=== PATIENT | male | born 1990 | race Two or more races ===

== ENCOUNTER 2020-03-02 14:10 | Emergency (ER) | payer SELFPAY ==
[~2020-03-02] VITALS: Ht 182.9 cm; Wt 105.2 kg
[2020-03-02] MEDS ORDERED: DiphenhydrAMINE 50mg/ml Inj IM ONE ×2 (14:30→14:45)
[2020-03-02 14:32] VITALS: BP 118/74
--- NOTE | 2020-03-02 14:36 | Emergency Room Report ---
History of Present Illness General Chief Complaint: Allergic Reaction Source: Patient Present Illness HPI 29 YO male presents to the ED c/o 02/15 in severity burning and itchy rash to the bilateral forearms x 45 mins. Pt. reports acute onset after cutting down an agave plant. Pt. reports he Took 25mg Benadryl PO [employer]CR[employer]. Pt. denies fevers, chills or swollen tender lymph nodes. Denies lesions/rashes elsewhere on the body. Denies new medications or body washes or creams. Denies swelling of the lips, tongue , throat or airway. Denies wheezing, or shortness of breath. Denies recent travel, recent illness or ill contacts. denies blisters, oral lesions, or sloughing of the skin. Allergies: Coded Allergies: No Known Allergies (Unverified , 03/02/20) COVID-19 Screening Contact w/high risk pt: No Experienced COVID-19 symptoms?: No COVID-19 Testing performed [employer]NI SECRETARY: No Patient History Past Medical History: see triage record Past Surgical History: none Pertinent Family History: none Reviewed Nursing Documentation: PMH: Agreed; PSxH: Agreed Nursing Documentation-PMH Past Medical History: No Stated History Review of Systems All Other Systems: negative except mentioned in HPI Physical Exam Vital Signs Date Time Temp Pulse Resp B/P (MAP) Pulse Ox O2 Delivery O2 Flow Rate FiO2 03/02/20 14:16 98.4 86 19 118/74 (89) 95 Room Air Sp02 EP Interpretation: reviewed, normal General Appearance: no apparent distress, alert, GCS 15, non-toxic Head: normocephalic, atraumatic Eyes: bilateral eye normal inspection, bilateral eye PERRL ENT: hearing grossly normal, normal voice, other - no swelling of the lips or tongue Neck: full range of motion, other - no stridor Respiratory: chest non-tender, lungs clear, normal breath sounds, no wheezing, speaking full sentences Cardiovascular #1: regular rate, rhythm, no edema Musculoskeletal: back normal, normal range of motion, gait/station normal, non- tender Neurologic: alert, motor strength/tone normal, oriented x3, sensory intact, responsive, speech normal Psychiatric: judgement/insight normal Skin: rash - erythema and diffuse swelling to the lateral forearms. There are no blisters or vesicles. The rash has not spread elsewhere such as the neck or face. Lymphatic: no adenopathy Medical Decision Making PA Attestation Dr. Cao Is my supervising Physician whom patient management has been d iscussed with. Diagnostic Impression: Primary Impression: Dermatitis ER Course 25 YO female presents to the ED c/o 01/16 in severity painful rash to the left posterior buttock and thigh that has been progressive x 3 days. Pt. reports originally started as a painful blister in the left buttock area. Patient thought that this was a spider bite. Patient states she applied hydrocortisone cream. Patient reports upon awakening the next morning the rash was much more extensive and had spread. Pt. denies fevers, chills or swollen tender lymph nodes. Denies lesions/rashes elsewhere on the body. Denies new medications or body washes or creams. She denies ocular involvement. Denies facial lesions. Denies swelling of the lips, tongue , throat or airway. Denies wheezing, or shortness of breath. Denies recent travel, recent illness or ill contacts. denies blisters, oral lesions, or sloughing of the skin. She is not sure if she had the chicken pox or not in her childhood. Ddx considered but are not limited to cellulitis, allergic reaction, angio edema, abscess Vital signs: are WNL, pt. is afebrile H&PE are most consistent with contact dermatitis to the bilateral forearms. There is no evidence of anaphylaxis or acute impending airway compromise. Patient is in no acute distress and nontoxic in appearance. ORDERS: none required at this time, the diagnosis is clinical ED INTERVENTIONS: - copious irrigation to the bilateral forearms performed by area intelligence technician. - Ice Packs applied to affected areas by RN -IM Solu-Medrol 60mg, IM Benadryl 25mg Patient is reevaluated after interventions and it is noted that his symptoms have significantly improved. There is little erythema left on his bilateral forearms. Patient continues to maintain his own airway without evidence of impending airway compromise. DISCHARGE: At this time pt. is stable for d/c to home. Will provide printed patient care instructions, and any necessary prescriptions. Care plan and follow up instructions have been discussed with the patient prior to discharge. Last Vital Signs Date Time Temp Pulse Resp B/P (MAP) Pulse Ox O2 Delivery O2 Flow Rate FiO2 03/02/20 14:16 98.4 86 19 118/74 (89) 95 Room Air Disposition: HOME, SELF-CARE Condition: Stable Scripts Hydrocortisone/Aloe (Hydrocortisone/Aloe 1% Cream*) Y Cr 1 APPLIC TOPIC Q6H PRN for Itching, #30 GM Prov: Caity Olivas 03/02/20 Prednisone* (PREDNISONE*) 20 Mg Tablet 20 MG ORAL DAILY for 4 Days, #4 TAB 0 Refills Prov: Caity Olivas 03/02/20 Diphenhydramine Hcl (BENADRYL ALLERGY) 25 Mg Tablet 25 MG PO Q6HR, #30 TAB Prov: Caity Olivas 03/02/20 Patient Instructions: Contact Dermatitis, [id number] Additional Instructions: Take medications as directed. Do not drink alcohol, drive, or operate heavy machinery while taking Benadryl as this may cause drowsiness. Follow up with a Primary Care Provider in 3-5 days, even if your symptoms have resolved. --Please review list of primary care clinics, if you do not already have a primary care provider Return sooner to ED if new symptoms occur, or current symptoms become worse. - Please note that this Emergency Department Report was dictated using Picture[employer] technician technology software, occasionally this can lead to erroneous entry secondary to interpretation by the dictation equipment. Caity Olivas Mar 02, 2020 14:36
[2020-03-02] MEDS ORDERED: Solu-MEDROL 125mg Inj IM ONE (14:45)
[2020-03-02] MEDS ORDERED: HYDROCORTISONE-30 GM TOPIC (15:03)
[2020-03-02] MEDS ORDERED: BENADRYL ALLERG25 M1 PO (15:03)
[2020-03-02] MEDS ORDERED: PREDNISONE20 MG ORAL (15:03)
[2020-03-02 15:25] VITALS: BP 120/80
== END 2020-03-02 15:25 | disposition home or self-care (01) ==
LOC: EMR 14:25
DX: L30.9 Dermatitis, unspecified (principal)
CPT/HCPCS: 96372; 99283; J1200; J2930